=== PATIENT | male | born 1930 | race Two or more races ===

== ENCOUNTER 2019-12-30 10:06 | Inpatient (IN) | payer OTHER, MEDICAID ==
[~2019-12-30] VITALS: Ht 160 cm; Wt 47.1 kg
[~2019-12-30 10:06] MED LIST: ALB5IS NEB; ALBUAER3 IN; ASPI325T4 PO; ATOR10TA PO; CILO100T PO; DOCU-94 PO; FER325T PO; FURO1TAB31 PO; LEVO75TA50 PO; LISI-648 PO; MET25T PO; METF-370 PO; PANT40TA2 PO; RIVA10TA PO
[2019-12-30] MEDS ORDERED: methylPREDNISolone SOD SUCC 125 MG/2 ML VL IV ONE (10:45)
[2019-12-30 12:16] LABS: Basophils # (auto) 0 10 ^3/uL (0-0.2); Eosinophils # (auto) 0 10 ^3/uL (0-0.8); Lymphocytes # (auto) 0.6 10 ^3/uL (0.4-5.4); Monocytes # (auto) 0.3 10 ^3/uL (0-1.3); Platelet Count (auto) 318 10^3/uL (140-450)
[2019-12-30 12:21] LABS: Basophils % (auto) 0.6 % (0.0-2.0); Lymphocytes % (auto) 15.7 % (10.0-50.0); Mean Corpuscular Hemoglobin 26.1 pg (28.0-32.0); Mean Corpuscular Hgb Conc. 31.5 g/dL (32.0-36.0); Mean Corpuscular Volume 82.8 fL (80.0-100.0); Monocytes % (auto) 8.1 % (0.0-12.0); Neutrophils % (auto) 74.6 % (37.0-80.0); Nucleated Red Blood Cells % 0.2 %; Red Blood Cells 4.23 10^6/uL (4.5-5.90); Red Cell Distribution Width 17.3 % (11.8-14.3)
[2019-12-30 12:35] LABS: Chloride 111 mmol/L (98-107); Potassium 3.6 mmol/L (3.5-5.1); Sodium 141 mmol/L (136-145)
[2019-12-30 12:45] LABS: Alanine Aminotransferase 17 U/L (16-61); Alkaline Phosphatase 139 U/L (45-117); Anion Gap 7 (5-15); Aspartate Aminotransferase 27 U/L (15-37); BUN/Creatinine Ratio 15.5; Bilirubin, Total 1.5 mg/dL (0.2-1.0); Blood Urea Nitrogen 17 mg/dL (7-18); CRP High Sensitivity 0.61 mg/dL (< 0.3); Calcium 8.3 mg/dL (8.5-10.1); Carbon Dioxide 23 mmol/L (21-32); GFR African American 81 mL/min; GFR Non-African American 67 mL/min; Glucose 120 mg/dL (74-106); Lactate Dehydrogenase 272 U/L (87-241); Total Protein 6.7 g/dL (6.4-8.2)
[2019-12-30] MEDS ORDERED: NITROGLYCERIN 0.4 MG SL TAB SL PRN (17:15)
[2019-12-30] MEDS ORDERED: FUROSEMIDE 40 MG/4 ML VIAL IV ONE (17:15)
[2019-12-30] MEDS ORDERED: MORPHINE SULF INJ 2 MG/ML SYRINGE 1ML IV PRN (17:15)
[2019-12-30] MEDS ORDERED: DOCUSATE SOD 100 MG CAP PO PRN (17:30)
[2019-12-30] MEDS ORDERED: ALBUTEROL SULF HFA 90MCG INH 200DOSE IN PRN (17:30)
[2019-12-30] MEDS: AZITHROMYCIN 500MG/ 250ML 250 ML IV SCH (20:41)
[2019-12-30] MEDS: metFORMIN HYDROCHLORIDE 500 MG TAB PO SCH (20:41)
[2019-12-30] MEDS: FERROUS SULFATE 325 MG TAB PO SCH (22:22)
[2019-12-30] MEDS: METOPROLOL TARTRATE 25 MG TAB PO SCH (22:23)
[2019-12-30] MEDS: CILOSTAZOL 100 MG TAB PO SCH (22:23)
--- NOTE | 2019-12-30 23:30 | NUR ---
MS admit from ER ASTRID RODRIGUEZ admitted to tele/MS at 2320. Patient oriented to KALIE KEENAN, RN primary RN, unit, room, bed, and unit policies regarding patient care and visiting hours. Patient weighed by bed scale. No s/s of respiratory distress. Respirations are regular and non-labored. SpO2 94 on O2 2 LPM NC. Patient denies pain, nausea, shortness of breath. Bed in lowest locked position, side rails X 2 up, call light within reach. Patient encouraged to call for assistance as needed. All questions and concerns addressed, patient verbalized understanding. Will continue to monitor Q1H and/or PRN.
[2019-12-31 00:14] VITALS: BP 115/51
[2019-12-31 00:22] VITALS: BP 115/51
[2019-12-31 01:42] VITALS: BP 115/51
[2019-12-31 01:45] LABS: Urine Bacteria NONE SEEN /hpf (None Seen); Urine Blood TRACE /uL (Negative); Urine Hyaline Cast FEW /lpf (0 - 2); Urine Specific Gravity 1.007 (1.001-1.035); Urine WBC <1 /hpf (0 - 3)
[2019-12-31 05:00] VITALS: BP 138/58
[2019-12-31] MEDS ORDERED: FUROSEMIDE 40 MG TAB PO SCH (06:00)
--- NOTE | 2019-12-31 06:10 | NUR ---
Respiratory note: [facility] THERAPY HELD PATIENT REMAINS COVID R/O WITH RESULTS PENDING. PATIENT IN NO ACUTE RESPIRATORY DISTRESS AT THIS TIME. SPO2 98% ON 2LPM N/C. ALL OTHER VITALS WNL.
[2019-12-31] MEDS: metFORMIN HYDROCHLORIDE 500 MG TAB PO SCH (06:21)
[2019-12-31] MEDS ORDERED: LEVOTHYROXINE SODIUM 50 MCG TAB PO SCH (07:00)
[2019-12-31 07:21] LABS: Basophils # (auto) 0 10 ^3/uL (0-0.2); Eosinophils # (auto) 0 10 ^3/uL (0-0.8); Hemoglobin 10.9 g/dL (13.5-17.5); Lymphocytes # (auto) 0.3 10 ^3/uL (0.4-5.4); Monocytes # (auto) 0.1 10 ^3/uL (0-1.3); Monocytes % (auto) 2.6 % (0.0-12.0); Nucleated Red Blood Cells % 0.1 %
[2019-12-31 07:23] LABS: Basophils % (auto) 0.5 % (0.0-2.0); Hematocrit 34.3 % (41.0-53.0); Lymphocytes % (auto) 5.3 % (10.0-50.0); Mean Corpuscular Hemoglobin 26.5 pg (28.0-32.0); Mean Corpuscular Hgb Conc. 31.9 g/dL (32.0-36.0); Mean Corpuscular Volume 82.9 fL (80.0-100.0); Neutrophils % (auto) 91.6 % (37.0-80.0); Platelet Count (auto) 320 10^3/uL (140-450); Red Blood Cells 4.13 10^6/uL (4.5-5.90); Red Cell Distribution Width 17.6 % (11.8-14.3); White Blood Cell 5.5 10^3/uL (4.4-10.8)
[2019-12-31 07:40] LABS: Calcium 8.5 mg/dL (8.5-10.1); Potassium 3.6 mmol/L (3.5-5.1)
[2019-12-31 07:43] LABS: BUN/Creatinine Ratio 17.8
--- NOTE | 2019-12-31 07:55 | NUR ---
OPENING SHIFT NOTE: PATIENT RESTING IN BED, AWAKE A/OX4. RESPIRATIONS EVEN AND UNLABORED ON 2LNC. ADDRESSED PATIENT CONCERNS, AND UPDATED ON PLAN OF CARE. FALL PRECAUTIONS IN PLACE, CALL LIGHT PLACED WITHIN REACH. WILL CONTINUE TO MONITOR.
[2019-12-31 08:00] VITALS: BP 132/76
--- NOTE | 2019-12-31 09:11 | NUR ---
DR. AJIT PEACE. PATIENT CLEARED FOR DC BY PULMONOLOGY.
--- NOTE | 2019-12-31 09:12 | NUR ---
PCP APPOINTMENT: PER SURAJ IN PATIENT'S PRIMARY CARE OFFICE, "THE DOCTOR WILL DECIDE IF WE CAN SCHEDULE HIM AN APPOINTMENT IN OFFICE OR A TELEPHONE VISIT." PATIENT'S PHONE NUMBERS GIVEN TO PCP.
[2019-12-31] MEDS: AZITHROMYCIN 500MG/ 250ML 250 ML IV SCH (09:46)
[2019-12-31] MEDS: CILOSTAZOL 100 MG TAB PO SCH (09:47)
[2019-12-31] MEDS: METOPROLOL TARTRATE 25 MG TAB PO SCH (09:47)
[2019-12-31] MEDS: FERROUS SULFATE 325 MG TAB PO SCH (09:47)
[2019-12-31] MEDS ORDERED: RIVAROXABAN 10 MG TAB PO SCH (10:00)
[2019-12-31] MEDS ORDERED: AZITHROMYCIN 500MG/ 250ML 250 ML IV SCH (10:00)
[2019-12-31] MEDS ORDERED: LISINOPRIL 10 MG TAB PO SCH (10:00)
[2019-12-31] MEDS ORDERED: ASPirin 325 MG TAB PO SCH (10:00)
[2019-12-31] MEDS ORDERED: PANTOPRAZOLE 40 MG TAB PO SCH (10:00)
--- NOTE | 2019-12-31 11:35 | NUR ---
DISCHARGE: PATIENT DISCHARGED HOME, [facility] TO [facility] HOME HEALTH ALL PHONE NUMBERS AND CONTACTS GIVEN. ALL EDUCATION MATERIALS GIVEN, PATIENT ENCOURAGED TO FOLLOW UP WITH A COMPOSITE MECHANIC AND OBTAIN REFERRAL FROM PCP. IV REMOVED MANUAL PRESSURE APPLIED, TELE CLEANED AND RETURNED TO CARDIO UNIT. PATIENT TAKEN DOWN TO PRIVATE AUTO WITH ALL BELONGINGS.
--- NOTE | 2019-12-31 15:44 | NUR ---
Received a call from Terri TOMLINSON at [facility] and stated that [facility] will be coming to see the patient, and they are going to call her
[2019-12-31] MEDS ORDERED: ATORVASTATIN 20 MG TAB PO SCH (22:00)
== END 2019-12-31 11:47 | disposition home health service (06) | DRG 190 ==
LOC: ER 10:06 → TELE 10:07 → TELE-E-ADS 23:35
PROVIDERS: ADMIT Internal Medicine; ATTEND Internal Medicine
DX: J44.1 Chronic obstructive pulmonary disease with (acute) exacerbation (principal); I50.21 Acute systolic (congestive) heart failure; J96.11 Chronic respiratory failure with hypoxia; Z68.1 Body mass index [BMI] 19.9 or less, adult; E46 Unspecified protein-calorie malnutrition; K21.9 Gastro-esophageal reflux disease without esophagitis; E03.9 Hypothyroidism, unspecified; E11.8 Type 2 diabetes mellitus with unspecified complications; E66.9 Obesity, unspecified; E78.5 Hyperlipidemia, unspecified; F02.80 Dementia in other diseases classified elsewhere, unspecified severity, without behavioral disturbance, psychotic disturbance, mood disturbance, and anxiety; G30.9 Alzheimer's disease, unspecified; I08.1 Rheumatic disorders of both mitral and tricuspid valves; I11.0 Hypertensive heart disease with heart failure; I48.91 Unspecified atrial fibrillation; Z20.828 Contact with and (suspected) exposure to other viral communicable diseases; Z79.01 Long term (current) use of anticoagulants; Z79.02 Long term (current) use of antithrombotics/antiplatelets; Z79.82 Long term (current) use of aspirin; Z79.84 Long term (current) use of oral hypoglycemic drugs; Z79.899 Other long term (current) drug therapy; Z87.442 Personal history of urinary calculi
CPT/HCPCS: 36415; 71045; 80048; 80053; 81001; 82728; 83605; 83615; 83880; 84484; 85025; 85379; 86141; 87040; 87426; 93005; 94762; G0378

== ENCOUNTER 2020-01-17 15:13 | Emergency (ER) | payer OTHER, MEDICAID ==
[~2020-01-17] VITALS: Ht 157.5 cm; Wt 45.4 kg
[2020-01-17] MEDS ORDERED: METOPROLOL TARTRATE 1MG/1ML-5ML VIAL IV ONE (16:00)
[2020-01-17] MEDS ORDERED: IPRATROPIUM BROM 0.5 MG/2.5ML INH SOL NEB ONE (16:00)
[2020-01-17] MEDS ORDERED: METOPROLOL TARTRATE 25 MG TAB PO ONE (16:00)
[2020-01-17] MEDS ORDERED: methylPREDNISolone SOD SUCC 125 MG/2 ML VL IV ONE (16:00)
[2020-01-17] MEDS ORDERED: ALBUTEROL SULF 2.5 MG/0.5ML(0.5%) NEB SOLN NEB ONE (16:00)
[2020-01-17 16:09] LABS: Basophils # (auto) 0 10 ^3/uL (0-0.2); Basophils % (auto) 0.9 % (0.0-2.0); Eosinophils # (auto) 0 10 ^3/uL (0-0.8); Hematocrit 36.2 % (41.0-53.0); Lymphocytes # (auto) 0.6 10 ^3/uL (0.4-5.4); Lymphocytes % (auto) 17.9 % (10.0-50.0); Mean Corpuscular Hemoglobin 25.1 pg (28.0-32.0); Mean Corpuscular Hgb Conc. 30.5 g/dL (32.0-36.0); Mean Corpuscular Volume 82.3 fL (80.0-100.0); Monocytes # (auto) 0.3 10 ^3/uL (0-1.3); Monocytes % (auto) 10.1 % (0.0-12.0); Neutrophils # (auto) 2.4 10 ^3/uL (1.6-8.6); Neutrophils % (auto) 70.1 % (37.0-80.0); Nucleated Red Blood Cells % 0.2 %; Platelet Count (auto) 317 10^3/uL (140-450); Red Blood Cells 4.41 10^6/uL (4.5-5.90); Red Cell Distribution Width 17.3 % (11.8-14.3); White Blood Cell 3.4 10^3/uL (4.4-10.8)
[2020-01-17 16:27] LABS: BUN/Creatinine Ratio 12.1; Calcium 8.6 mg/dL (8.5-10.1); Potassium 4.1 mmol/L (3.5-5.1)
[2020-01-17 16:32] LABS: Bilirubin, Total 0.9 mg/dL (0.2-1.0)
[2020-01-17 19:15] VITALS: BP 131/47
== END 2020-01-17 19:52 | disposition home or self-care (01) ==
LOC: ER 15:13
DX: J44.1 Chronic obstructive pulmonary disease with (acute) exacerbation (principal); I48.91 Unspecified atrial fibrillation; E11.9 Type 2 diabetes mellitus without complications; I10 Essential (primary) hypertension; E78.5 Hyperlipidemia, unspecified; Z90.89 Acquired absence of other organs
CPT/HCPCS: 36415; 71045; 80053; 84484; 85025; 93005; 94640; 96374; 99291; J2930; J7644; 82962

== ENCOUNTER 2020-02-20 11:13 | Emergency (ER) | payer OTHER, MEDICAID ==
[~2020-02-20] VITALS: Ht 154.9 cm; Wt 49.9 kg
[2020-02-20 11:56] LABS: Basophils # (auto) 0 10 ^3/uL (0-0.2); Eosinophils # (auto) 0 10 ^3/uL (0-0.8); Hemoglobin 11.9 g/dL (13.5-17.5); Lymphocytes # (auto) 0.7 10 ^3/uL (0.4-5.4); Mean Corpuscular Hemoglobin 24.3 pg (28.0-32.0); Mean Corpuscular Hgb Conc. 30.4 g/dL (32.0-36.0); Monocytes # (auto) 0.3 10 ^3/uL (0-1.3); Red Blood Cells 4.89 10^6/uL (4.5-5.90); White Blood Cell 3.1 10^3/uL (4.4-10.8)
[2020-02-20 12:02] LABS: Basophils % (auto) 0.9 % (0.0-2.0); Eosinophils % (auto) 0.9 % (0.0-7.0); Hematocrit 39.1 % (41.0-53.0); Lymphocytes % (auto) 23.7 % (10.0-50.0); Monocytes % (auto) 9.8 % (0.0-12.0); Neutrophils % (auto) 64.7 % (37.0-80.0); Nucleated Red Blood Cells % 0.1 %; Platelet Count (auto) 286 10^3/uL (140-450); Red Cell Distribution Width 17.3 % (11.8-14.3)
[2020-02-20 12:14] LABS: INR 1.74 (0.9-1.15); Partial Thromboplastin Time 35.7 sec (23.0-31.2)
[2020-02-20 12:23] LABS: Calcium 8.4 mg/dL (8.5-10.1); Potassium 4.7 mmol/L (3.5-5.1)
[2020-02-20 12:33] LABS: Albumin 3.2 g/dL (3.4-5.0); BUN/Creatinine Ratio 16.1; Total Protein 6.8 g/dL (6.4-8.2)
[2020-02-20] MEDS ORDERED: cefTRIAXone 1GM/50ML D5W 50 ML IV ONE (12:45)
[2020-02-20] MEDS ORDERED: AZITHROMYCIN 500MG/ 250ML 250 ML IV ONE (12:45)
[2020-02-20 14:35] LABS: Urine Blood Negative /uL (Negative); Urine WBC 10 /hpf (0 - 3)
[2020-02-20 14:36] LABS: Urine Bacteria NONE SEEN /hpf (None Seen); Urine Hyaline Cast MANY /lpf (0 - 2); Urine Mucus FEW (None Seen)
[2020-02-20 14:40] LABS: Lactic Acid w/Reflex 2.9 mmol/L (0.4-2.0)
[2020-02-20] MEDS ORDERED: SODIUM CHLORIDE 0.9% 1,000 ML IV ONE (15:30)
[2020-02-20] MEDS ORDERED: ALBUTEROL SULF 2.5 MG/0.5ML(0.5%) NEB SOLN NEB ONE (15:45)
[2020-02-20] MEDS ORDERED: FUROSEMIDE 40 MG/4 ML VIAL IV ONE (15:45)
[2020-02-20] MEDS ORDERED: FURO1TAB31 PO (16:09)
[2020-02-20] MEDS ORDERED: POTA1TAB4 PO (16:09)
[2020-02-20] MEDS ORDERED: METO25TA36 PO (16:13)
[2020-02-20 17:01] VITALS: BP 149/87
--- NOTE | 2020-02-21 11:12 | NUR ---
ss consult Per consult [facility] case operator to arrange for safety darian high heel builder. order has been sent to Sonali at [facility]. Per Sonali she will set up home health and call patient. Addendum: 02/21/20 at 1119 by Olya Lopes Amended: Links added.
== END 2020-02-20 17:18 | disposition home or self-care (01) ==
LOC: ER 11:13
DX: J18.9 Pneumonia, unspecified organism (principal); I11.0 Hypertensive heart disease with heart failure; I50.43 Acute on chronic combined systolic (congestive) and diastolic (congestive) heart failure; E78.5 Hyperlipidemia, unspecified; Z87.442 Personal history of urinary calculi
CPT/HCPCS: 36415; 71045; 80053; 81001; 83605; 83735; 83880; 84484; 85025; 85610; 85730; 87040; 87426; 93005; 94640; 96365; 96366; 96368; 96375; 99285; J0456; J0696; J1940

== ENCOUNTER 2020-02-25 17:07 | Emergency (ER) | payer OTHER, MEDICAID ==
[~2020-02-25] VITALS: Ht 162.6 cm; Wt 49.9 kg
[~2020-02-25 17:07] MED LIST changes: +METO25TA36 PO; +POTA1TAB4 PO
[2020-02-25 17:28] VITALS: BP 100/61
== END 2020-02-25 20:55 | disposition left against medical advice (07) ==
LOC: ER 17:07
DX: I48.91 Unspecified atrial fibrillation (principal); J44.9 Chronic obstructive pulmonary disease, unspecified; E11.9 Type 2 diabetes mellitus without complications; E78.5 Hyperlipidemia, unspecified; I10 Essential (primary) hypertension; Z87.442 Personal history of urinary calculi
CPT/HCPCS: 71046; 93005

== ENCOUNTER 2020-04-17 19:12 | Inpatient (IN) | payer OTHER, MEDICAID ==
[~2020-04-17] VITALS: Ht 152.4 cm; Wt 50.8 kg
[2020-04-18 03:31] LABS: Basophils # (auto) 0 10 ^3/uL (0-0.2); Eosinophils # (auto) 0 10 ^3/uL (0-0.8); Hematocrit 38.7 % (41.0-53.0); Hemoglobin 11.3 g/dL (13.5-17.5); Lymphocytes # (auto) 0.1 10 ^3/uL (0.4-5.4); Mean Corpuscular Hemoglobin 23.1 pg (28.0-32.0); Mean Corpuscular Hgb Conc. 29.2 g/dL (32.0-36.0); Monocytes # (auto) 0.4 10 ^3/uL (0-1.3); Neutrophils # (auto) 5.5 10 ^3/uL (1.6-8.6); Nucleated Red Blood Cells % 1.1 %
[2020-04-18 03:32] LABS: Basophils % (auto) 0.3 % (0.0-2.0); Eosinophils % (auto) 0.1 % (0.0-7.0); Monocytes % (auto) 5.9 % (0.0-12.0); Neutrophils % (auto) 91.7 % (37.0-80.0); Platelet Count (auto) 189 10^3/uL (140-450)
[2020-04-18 03:38] LABS: Lactic Acid w/Reflex 12.2 mmol/L (0.4-2.0)
[2020-04-18 03:39] LABS: Albumin 2.8 g/dL (3.4-5.0); Anion Gap 19 (5-15); Blood Alcohol < 3.0 mg/dL (0-5); Blood Urea Nitrogen 59 mg/dL (7-18); Calcium 9.1 mg/dL (8.5-10.1); Carbon Dioxide 13 mmol/L (21-32); Chloride 111 mmol/L (98-107); Sodium 143 mmol/L (136-145)
[2020-04-18 03:45] LABS: Alanine Aminotransferase 122 U/L (16-61); Alkaline Phosphatase 203 U/L (45-117); Aspartate Aminotransferase 334 U/L (15-37); Bilirubin, Total 3.5 mg/dL (0.2-1.0); GFR African American 24 mL/min; GFR Non-African American 20 mL/min; Partial Thromboplastin Time 45.1 sec (23.0-31.2); Total Protein 6.4 g/dL (6.4-8.2)
[2020-04-18 03:48] LABS: BUN/Creatinine Ratio 18.8; Glucose 25 mg/dL (74-106); Potassium 5.6 mmol/L (3.5-5.1)
[2020-04-18 03:52] LABS: INR 5.73 (0.9-1.15)
[2020-04-18] MEDS ORDERED: DEXTROSE (50%) 50ML SYRG IV ONE (04:00)
[2020-04-18] MEDS ORDERED: CALCIUM GLUC 4.65meq/50ml D5AE 50 ML IV ONE (04:00)
[2020-04-18] MEDS ORDERED: SODIUM BICARBONATE 8.4% INJ 50ML SYRINGE IV ONE (04:00)
[2020-04-18] MEDS ORDERED: SODIUM ZIRCONIUM CYCL 10 GM PAK PO ONE (04:00)
[2020-04-18 04:04] LABS: Red Cell Distribution Width 21.6 % (11.8-14.3)
[2020-04-18] MEDS ORDERED: CEFEPIME 2 GM in SODIUM CHL 0.9% 50 ML IV STA (05:01)
[2020-04-18] MEDS ORDERED: AZITHROMYCIN 500MG/ 250ML 250 ML IV ONE (05:15)
[2020-04-18] MEDS ORDERED: DOCUSATE SOD 100 MG CAP PO PRN (08:30)
[2020-04-18] MEDS ORDERED: MORPHINE SULFATE 4 MG/ML SYR/VIAL IV PRN (08:30)
[2020-04-18] MEDS ORDERED: NITROGLYCERIN 0.4 MG SL TAB SL PRN (08:30)
[2020-04-18] MEDS ORDERED: MORPHINE SULF INJ 2 MG/ML SYRINGE 1ML IV PRN (08:30)
[2020-04-18] MEDS ORDERED: SODIUM BICARBONATE 50ML VIAL 150 ML in D5W 5% 1,000 ML IV ONE (08:30)
[2020-04-18] MEDS ORDERED: ONDANSETRON HCL 4 MG/2 ML VIAL IV PRN (08:30)
[2020-04-18] MEDS ORDERED: HEPARIN DRIP/D5W 100UNITS/ML 250 ML IV SCH (08:45)
[2020-04-18] MEDS ORDERED: cefTRIAXone 1GM/50ML D5W 50 ML IV SCH (09:00)
[2020-04-18 09:21] LABS: Calcium 9.4 mg/dL (8.5-10.1); Potassium 5.4 mmol/L (3.5-5.1)
[2020-04-18 09:27] LABS: BUN/Creatinine Ratio 19.4
[2020-04-18] MEDS ORDERED: phytonadione 10 MG in SODIUM CHL 0.9% 50 ML IV ONE (09:30)
[2020-04-18] MEDS ORDERED: METOPROLOL SUCCINATE XL 50 MG TAB PO SCH (10:00)
[2020-04-18] MEDS ORDERED: ASCORBIC ACID 500 MG TAB PO SCH (10:00)
[2020-04-18] MEDS ORDERED: PANTOPRAZOLE 40 MG/10 ML VIAL INJ IV SCH (10:00)
[2020-04-18] MEDS ORDERED: ASPirin-EC 81 mg tab PO SCH (10:00)
[2020-04-18] MEDS ORDERED: ZINC SULFATE 220mg CAP or TAB PO SCH (10:00)
[2020-04-18 10:34] LABS: INR 5.09 (0.9-1.15)
[2020-04-18 10:46] LABS: Basophils # (auto) 0 10 ^3/uL (0-0.2); Eosinophils # (auto) 0 10 ^3/uL (0-0.8); Lymphocytes # (auto) 0.2 10 ^3/uL (0.4-5.4); Mean Corpuscular Hgb Conc. 28.9 g/dL (32.0-36.0); Monocytes # (auto) 0.4 10 ^3/uL (0-1.3)
[2020-04-18 10:48] LABS: Basophils % (auto) 0.1 % (0.0-2.0); Hematocrit 39.3 % (41.0-53.0); Hemoglobin 11.3 g/dL (13.5-17.5); Lymphocytes % (auto) 2.7 % (10.0-50.0); Mean Corpuscular Hemoglobin 23.1 pg (28.0-32.0); Mean Corpuscular Volume 79.9 fL (80.0-100.0); Monocytes % (auto) 7.1 % (0.0-12.0); Neutrophils # (auto) 5.2 10 ^3/uL (1.6-8.6); Neutrophils % (auto) 90.1 % (37.0-80.0); Platelet Count (auto) 185 10^3/uL (140-450); Red Blood Cells 4.92 10^6/uL (4.5-5.90); Red Cell Distribution Width 21.4 % (11.8-14.3); White Blood Cell 5.8 10^3/uL (4.4-10.8)
[2020-04-18] MEDS ORDERED: ONDANSETRON HCL 4 MG/2 ML VIAL ONE (12:48)
--- NOTE | 2020-04-18 13:13 | NUR ---
regarding social service consult for hospice. has already arranged everything with [facility].
[2020-04-18] MEDS ORDERED: PIPERACILLIN-TAZOB 2.25GM 50 ML IV SCH (14:00)
[2020-04-18 14:43] VITALS: BP 100/62
[2020-04-18] MEDS ORDERED: FUROSEMIDE 20 MG/2 ML VIAL IV SCH (18:00)
[2020-04-18] MEDS ORDERED: SOD CHL 0.45% 1,000 ML IV SCH (21:30)
[2020-04-18] MEDS ORDERED: ATORVASTATIN 20 MG TAB PO SCH (22:00)
[2020-04-19] MEDS ORDERED: LEVOTHYROXINE SODIUM 25 MCG TAB PO SCH (07:00)
[2020-04-19] MEDS ORDERED: SODIUM BICARBONATE 50ML VIAL 150 ML in D5W 5% 1,000 ML IV SCH (13:45)
== END 2020-04-18 17:22 | disposition hospice, home (50) | DRG 280 ==
LOC: EDBD 19:12 → ER 19:12 → OVERFLOW 19:13
PROVIDERS: ADMIT Hospitalist; ATTEND Hospitalist
DX: I21.4 Non-ST elevation (NSTEMI) myocardial infarction (principal); J18.9 Pneumonia, unspecified organism; N17.0 Acute kidney failure with tubular necrosis; E87.2 Acidosis; I13.0 Hypertensive heart and chronic kidney disease with heart failure and stage 1 through stage 4 chronic kidney disease, or unspecified chronic kidney disease; J44.0 Chronic obstructive pulmonary disease with (acute) lower respiratory infection; Z51.5 Encounter for palliative care; Z66 Do not resuscitate; Z20.828 Contact with and (suspected) exposure to other viral communicable diseases; D64.9 Anemia, unspecified; E11.22 Type 2 diabetes mellitus with diabetic chronic kidney disease; E11.649 Type 2 diabetes mellitus with hypoglycemia without coma; E78.5 Hyperlipidemia, unspecified; E87.5 Hyperkalemia; F02.80 Dementia in other diseases classified elsewhere, unspecified severity, without behavioral disturbance, psychotic disturbance, mood disturbance, and anxiety; G30.9 Alzheimer's disease, unspecified; I25.10 Atherosclerotic heart disease of native coronary artery without angina pectoris; I48.91 Unspecified atrial fibrillation; I50.9 Heart failure, unspecified; N18.9 Chronic kidney disease, unspecified; Z79.01 Long term (current) use of anticoagulants; Z79.02 Long term (current) use of antithrombotics/antiplatelets; Z79.82 Long term (current) use of aspirin; Z79.84 Long term (current) use of oral hypoglycemic drugs; Z79.899 Other long term (current) drug therapy; Z82.0 Family history of epilepsy and other diseases of the nervous system; Z82.49 Family history of ischemic heart disease and other diseases of the circulatory system; Z87.442 Personal history of urinary calculi; Z90.49 Acquired absence of other specified parts of digestive tract
CPT/HCPCS: 36415; 70450; 71045; 71250; 80048; 80053; 80320; 82962; 83605; 83880; 84484; 85025; 85610; 85730; 87040; 87426; 93005; 96365; 96367; 96368; 96375; C9113; G0378; J0610; J2405; J3430